=== PATIENT | male | born 1945 | race Caucasian/White ===

== ENCOUNTER 2016-11-18 11:10 | Inpatient (IN) | payer MEDICARE ==
[~2016-11-18] VITALS: Ht 177.8 cm; Wt 94.7 kg
[2016-11-18] VITALS (17 sets, daily range): BP systolic 119–219; BP diastolic 45–101; PULSE 34–80; RESP 14–20; TEMP 98.5–103; O2SAT 0–100
[2016-11-18] MEDS ORDERED: PROPOFOL 1000 MG/100 ML INJ 100 ML ONE (11:22)
[2016-11-18] MEDS ORDERED: SODIUM CHLOR 0.9% 1000 ML INJ 1,000 ML IV SCH (11:24)
[2016-11-18] MEDS ORDERED: LORazepam 2 MG/ML VIAL IV PUSH ONE (11:30)
[2016-11-18] MEDS ORDERED: SODIUM CHLORIDE 0.9% FLUSH 5 ML FLUSH IV FLUSH PRN (11:30)
[2016-11-18] MEDS ORDERED: LORazepam 2 MG/ML VIAL ONE (11:31)
[2016-11-18] MEDS ORDERED: PROPOFOL 1000 MG/100 ML INJ 100 ML IV PRN (11:45)
[2016-11-18] MEDS ORDERED: ETOMIDATE 20 MG/10 ML VIAL IV PUSH ONE (11:45)
[2016-11-18] MEDS ORDERED: SUCCINYLCHOLINE CHLORIDE 100 MG/5 ML SYRINGE IV PUSH ONE (11:45)
[2016-11-18] MEDS ORDERED: insulin SQ (11:52)
[2016-11-18] MEDS ORDERED: KEPP10002 PO (11:52)
[2016-11-18] MEDS ORDERED: ATOR10TA15 PO (11:52)
[2016-11-18 11:54] LABS: I-STAT POTASSIUM 4.7 MMOL/L (3.5-4.9)
[2016-11-18 11:55] LABS: AUTOMATED NEUTROPHIL # 16.5 TH/MM3 (1.8-7.7); BASOPHIL % 0.1 % (0.0-2.0); HEMATOCRIT 46.3 % (39.0-51.0); LYMPH % 5.2 % (9.0-44.0); MEAN CELL VOLUME 92.2 FL (80.0-100.0); MEAN CORPUSCULAR HEMOGLOBIN 30.5 PG (27.0-34.0); MONO % 6.2 % (0.0-8.0); NEUT % 88.5 % (16.0-70.0); PLATELET COUNT 203 TH/MM3 (150-450); RED BLOOD COUNT 5.03 MIL/MM3 (4.50-5.90); RED CELL DISTRIBUTION WIDTH 13.7 % (11.6-17.2); WHITE BLOOD COUNT 18.7 TH/MM3 (4.0-11.0)
[2016-11-18 11:56] LABS: HEMO FLAGS AUTO DIFF
[2016-11-18] MEDS ORDERED: GLUCAGON 1 MG/ML VIAL IV PUSH ONE (12:00)
[2016-11-18 12:03] LABS: BLOOD, URINE MOD (NEG); GLUCOSE,URINE TRACE mg/dL (NEG); INTERNATIONAL NORMALIZED RATIO 1.2 RATIO; KETONE, URINE 10 mg/dL (NEG); NITRITE,URINE NEG (NEG); PH, URINE 5.5 (5.0-8.5); PROTHROMBIN TIME - PATIENT 13.2 SEC (9.8-11.6); TRANSITIONAL EPI CELLS, URINE <1 /hpf; URINE COLOR YELLOW (YELLW/STRAW)
[2016-11-18 12:04] LABS: COMMENT (UR) CATH-CULT NOT IND; CULTURE IF INDICATED CATH CULTURE NOT IND
--- NOTE | 2016-11-18 12:20 | RADRPT ---
EXAM DATE/TIME: 11/18/2016 11:54 [facility] COMPARISON: No previous studies available for comparison. INDICATIONS : Found unresponsive on floor, possible seizure RADIATION DOSE: 36.05 CTDIvol (mGy) MEDICAL HISTORY : Unable to obtain SURGICAL HISTORY : Unable to obtain ENCOUNTER: Initial ACUITY: 1 day PAIN SCALE: Non-responsive LOCATION: cranial TECHNIQUE: Multiple contiguous axial images were obtained of the head. Using automated exposure control and adj ustment of the mA and/or kV according to patient size, radiation dose was kept as low as reasonably a chievable to obtain optimal diagnostic quality images. DICOM format image data is available electro nically for review and comparison. FINDINGS: There are no fractures. Mild ethmoid and right sphenoid mucosal thickening. There is a large hematoma in the right frontal temporal region with a small amount of surrounding edema. On axial image 13 in the right temporal lobe hematoma measures 5.4 x 3.8 cm in AP and transverse dimension. There is also subarachnoid hemorrhage identified along the left sylvian fissure and frontal region, hypodensity in the left temporal lobe with a small amount of probable hemorrhage, trace hemorrhage in the interpedun cular cistern and in the posterior horns of the lateral ventricles. Bilateral subdural hemorrhage is seen along the left frontal convexity with a maximal transverse width of 6 mm, and the right frontal region with a maximal transverse width of 73 mm. There is mild mass effect on the right lateral ventr icle, and there is slight midline shift from right to left a 4.5 mm. CONCLUSION: Intracranial hemorrhage noted as above with both intraparenchymal bleeds, bilateral subdural hemorrha ge, subarachnoid and intraventricular hemorrhage noted as above. Gregorio Barrios MD on November 18, 2016 at 12:17 Board Certified Radiologist. This report was verified electronically.
[2016-11-18 12:26] LABS: BANDS 7 % (0-6); BASOPHILS 1 % (0-2); NEUTROPHIL # MANUAL DIFF 15.1 TH/MM3 (1.8-7.7); PLATELET ESTIMATE SMEAR NORMAL (NORMAL); PLATELET MORPHOLOGY NORMAL (NORMAL); POLYS (SEG NEUTROPHILS) 74 % (16-70); SCAN/DIFF FINAL DIFF MANUAL; WBC DIFF SAMPLE 100
[2016-11-18] MEDS ORDERED: levETIRAcetam 1000 MG INJ 100 ML IV ONE (12:30)
[2016-11-18 12:36] LABS: ALT (GPT) 85 U/L (12-78); ANION GAP 10 MEQ/L (5-15); AST (GOT) 142 U/L (15-37); BICARBONATE 23.1 MEQ/L (21.0-32.0); BLOOD UREA NITROGEN 54 MG/DL (7-18); CHLORIDE 109 MEQ/L (98-107); GLOMERULAR FILTRATION RATE 34 ML/MIN (>89); POTASSIUM 4.7 MEQ/L (3.5-5.1); SODIUM (NA) 142 MEQ/L (136-145)
[2016-11-18 12:38] LABS: ALCOHOL LESS THAN 3 MG/DL (0-5); ALKALINE PHOSPHATASE 60 U/L (45-117); CREATINE KINASE 4927 U/L (39-308)
--- NOTE | 2016-11-18 12:39 | RADRPT ---
EXAM DATE/TIME: 11/18/2016 11:42 [facility] COMPARISON: No previous studies available for comparison. INDICATIONS : Unresponsive. MEDICAL HISTORY : Unresponsive SURGICAL HISTORY : Unresponsive ENCOUNTER: Initial ACUITY: 1 day PAIN SCORE: Non-responsive. LOCATION: Bilateral chest FINDINGS: Endotracheal tube is present with the sixth at 7 cm above the cecelia. Nasogastric tube descends in th e stomach. There are vague areas of masslike density in the lung apices which may reflect symmetric i nfiltrates, mass or overlying densities. Correlation with CT suggested if clinically indicated. Heart size is grossly normal. No significant hemothorax or pneumothorax suspected. CONCLUSION: Bilateral apical opacities. Yomi Corrigan MD on November 18, 2016 at 12:36 Board Certified Radiologist. This report was verified electronically.
[2016-11-18 12:42] LABS: ACETAMINOPHEN LESS THAN 2.0 MCG/ML (10.0-30.0)
[2016-11-18] MEDS ORDERED: PIPERACIL-TAZO 4.5 GM PREMIX 100 ML IV ONE (12:45)
[2016-11-18] MEDS ORDERED: VANCOMYCIN INJ 1,000 MG in SODIUM CHLOR 0.9% 250 ML INJ 250 ML IV ONE (12:45)
[2016-11-18] MEDS ORDERED: SODIUM CHLOR 0.9% 1000 ML INJ 1,000 ML IV ONE ×2 (12:45)
[2016-11-18 12:56] LABS: CKMB 18.8 NG/ML (0.5-3.6)
--- NOTE | 2016-11-18 13:03 | PD ---
HPI Chief Complaint: Cardiac Complaint Time Seen by Provider: 11:24 Travel History International Travel<30 days: No Contact w/Intl Traveler<30days: No Traveled to known affect area: No History of Present Illness HPI 71-year-old male came to the emergency room brought in as a emergent by EMS for being found unresponsive at his home. Unknown last seen normal. Unknown down time. En route they noticed that he was in second-degree heart block with heart rate in the 30s. Patient was being externally paced by EMS. When patient was brought in he was GCS of 3 with purposeless upper extremity movements. He was in a very poor hygienic condition. Heart rate was in the 30s. Patient obviously was in no state to give any meaningful history. There was no family or friend present either. I immediately decided to intubate the patient. Blood pressure was relatively stable. Patient has history of seizure and diabetes. His blood sugar was 120 en route[address] [facility] Past Medical History Narrative Medical List of his past medical, surgical, social and family history is reviewed from the nursing note. Medical History: Unable to Obtain Diabetes: Yes Patient Takes Glucophage: Yes (unknown ) Seizures: Yes Triglycerides - High: Yes Past Surgical History Surgical History: Unable to Obtain Social History Alcohol Use: No (unknown ) Tobacco Use: No Substance Use: No (unknown ) Allergies-Medications (Allergen,Severity, Reaction): Coded Allergies: No Known Allergies (Unverified , 11/18/16) Comments No known drug allergies Reported Meds & Prescriptions Reported Meds & Active Scripts Active Reported [insulin ] Unknown Dose SQ Keppra (Levetiracetam) 1,000 Mg Tab 1,000 Mg PO BID Atorvastatin (Atorvastatin Calcium) 10 Mg Tab 10 Mg PO HS Narrative Medication List of his home medications reviewed from the nursing note. Review of Systems Except as stated in HPI: all other systems reviewed are Neg Physical Exam Narrative GENERAL: Unresponsive, disheveled, poor hygiene, in extremis SKIN: Focused skin assessment warm/dry. Extremely poor hygiene HEAD: Atraumatic. Normocephalic. EYES: Pupils equal and round. 3 mm equal. No scleral icterus. No injection or drainage. ENT: No nasal bleeding or discharge. Mucous membranes pink and moist. NECK: Trachea midline. No JVD. CARDIOVASCULAR: Regular rate and rhythm. Bradycardia No murmur appreciated. RESPIRATORY: Poor respiratory left GASTROINTESTINAL: Abdomen soft, non-tender, nondistended. Hepatic and splenic margins not palpable. MUSCULOSKELETAL: No obvious deformities. No clubbing. No cyanosis. No edema. NEUROLOGICAL: GCS of 3 PSYCHIATRIC: Unable to assess Data Data Last Documented VS Orders Orders Propofol 1000 Mg/100 Ml Inj (Diprivan 10 (11/18/16 11:22) Ammonia (11/18/16 11:24) Complete Blood Count With Diff (11/18/16 11:24) Comprehensive Metabolic Panel (11/18/16 11:24) Creatine Kinase (Cpk) (11/18/16 11:24) Prothrombin Time / Inr (Pt) (11/18/16 11:24) Troponin I (11/18/16 11:24) Thyroid Stimulating Hormone (11/18/16 11:24) Urinalysis - C+S If Indicated (11/18/16 11:24) Lactic Acid Sepsis Protocol (11/18/16 11:24) Blood Culture (11/18/16 11:24) Chest, Single Ap (11/18/16 11:24) Ct Brain W/O Iv Contrast(Rout) (11/18/16 11:24) Blood Glucose (11/18/16 11:24) Ecg Monitoring (11/18/16 11:24) Iv Access Insert/Monitor (11/18/16 11:24) Oximetry (11/18/16 11:24) Sodium Chloride 0.9% Flush (Ns Flush) (11/18/16 11:30) Sodium Chlor 0.9% 1000 Ml Inj (Ns 1000 M (11/18/16 11:24) Drug Screen, Random Urine (11/18/16 11:24) Alcohol (Ethanol) (11/18/16 11:24) Tylenol (Acetaminophen) (11/18/16 11:24) Salicylates (Aspirin) (11/18/16 11:24) Lorazepam Inj (Ativan Inj) (11/18/16 11:30) Lorazepam Inj (Ativan Inj) (11/18/16 11:31) Succinylcholine Inj (Quelicin Inj) (11/18/16 11:45) Etomidate Inj (Amidate Inj) (11/18/16 11:45) Propofol 1000 Mg/100 Ml Inj (Diprivan 10 (11/18/16 11:45) Neurological Rass Scale Q30MX2,Q2HX4,Q4H (11/18/16 11:31) ^ Orogastric Tube (11/18/16 11:31) Urinary Catheter Insert/Apply (11/18/16 11:31) I-Stat Creatinine (11/18/16 11:50) I-Stat Profile (11/18/16 11:50) Echo 2d Comp With Doppler (11/18/16 ) Glucagon Inj (Glucagon Inj) (11/18/16 12:00) Levetiracetam 1000 Mg Inj (Keppra 1000 M (11/18/16 12:30) Sodium Chlor 0.9% 1000 Ml Inj (Ns 1000 M (11/18/16 12:45) Sodium Chlor 0.9% 1000 Ml Inj (Ns 1000 M (11/18/16 12:45) Piperacil-Tazo 4.5 Gm Premix (Zosyn 4.5 (11/18/16 12:45) Vancomycin Inj (Vancomycin Inj) (11/18/16 12:45) CKMB (11/18/16 11:25) CKMB% (11/18/16 11:25) Admit Order (Ed Use Only) (11/18/16 13:04) Labs Laboratory Tests Test 11/18/16 11:25 11/18/16 11:50 White Blood Count 18.7 TH/MM3 Red Blood Count 5.03 MIL/MM3 Hemoglobin 15.3 GM/DL Hematocrit 46.3 % Mean Corpuscular Volume 92.2 FL Mean Corpuscular Hemoglobin 30.5 PG Mean Corpuscular Hemoglobin Concent 33.0 % Red Cell Distribution Width 13.7 % Platelet Count 203 TH/MM3 Mean Platelet Volume 8.6 FL Neutrophils (%) (Auto) 88.5 % Lymphocytes (%) (Auto) 5.2 % Monocytes (%) (Auto) 6.2 % Eosinophils (%) (Auto) 0.0 % Basophils (%) (Auto) 0.1 % Neutrophils # (Auto) 16.5 TH/MM3 Lymphocytes # (Auto) 1.0 TH/MM3 Monocytes # (Auto) 1.1 TH/MM3 Eosinophils # (Auto) 0.0 TH/MM3 Basophils # (Auto) 0.0 TH/MM3 CBC Comment AUTO DIFF Differential Total Cells Counted 100 Neutrophils % (Manual) 74 % Band Neutrophils % 7 % Lymphocytes % 7 % Monocytes % 11 % Basophils % 1 % Neutrophils # (Manual) 15.1 TH/MM3 Differential Comment FINAL DIFF MANUAL Platelet Estimate NORMAL Platelet Morphology Comment NORMAL Prothrombin Time 13.2 SEC Prothromb Time International Ratio 1.2 RATIO Urine Color YELLOW Urine Turbidity CLEAR Urine pH 5.5 Urine Specific [place] 1.033 Urine Protein 100 mg/dL Urine Glucose (UA) TRACE mg/dL Urine Ketones 10 mg/dL Urine Occult Blood MOD Urine Nitrite NEG Urine Bilirubin NEG Urine Urobilinogen 2.0 MG/DL Urine Leukocyte Esterase NEG Urine RBC 26 /hpf Urine WBC 3 /hpf Urine Transitional Epithelial Cells <1 /hpf Microscopic Urinalysis Comment CATH-CULT NOT IND Blood Urea Nitrogen 54 MG/DL Creatinine 1.95 MG/DL Random Glucose 124 MG/DL Total Protein 6.6 GM/DL Albumin 3.2 GM/DL Calcium Level 9.1 MG/DL Alkaline Phosphatase 60 U/L Aspartate Amino Transf (AST/SGOT) 142 U/L Alanine Aminotransferase (ALT/SGPT) 85 U/L Total Bilirubin 1.0 MG/DL Sodium Level 142 MEQ/L Potassium Level 4.7 MEQ/L Chloride Level 109 MEQ/L Carbon Dioxide Level 23.1 MEQ/L Anion Gap 10 MEQ/L Estimat Glomerular Filtration Rate 34 ML/MIN Lactic Acid Level 7.0 mmol/L Ammonia 28 MCMOL/L Total Creatine Kinase 4927 U/L Creatine Kinase MB 18.8 NG/ML Creatine Kinase MB % 0.4 % Troponin I 1.17 NG/ML Thyroid Stimulating Hormone 3rd Gen 0.407 uIU/ML Salicylates Level LESS THAN 1.7 MG/DL Urine Opiates Screen NEG Acetaminophen Level LESS THAN 2.0 MCG/ML Urine Barbiturates Screen NEG Urine Amphetamines Screen NEG Urine Benzodiazepines Screen NEG Urine Cocaine Screen NEG Urine Cannabinoids Screen NEG Ethyl Alcohol Level LESS THAN 3 MG/DL Bedside Hemoglobin 15.0 G/DL Bedside Hematocrit 44.0 % Bedside Sodium 144 MMOL/L Bedside Potassium 4.7 MMOL/L Bedside Chloride 107 MMOL/L Bedside Blood Urea Nitrogen 56 MG/DL Bedside Creatinine 1.6 MG/DL Bedside Glucose 132 MG/DL [facility] Medical Decision Making Medical Screen Exam Complete: Yes Emergency Medical Condition: Yes Medical Record Reviewed: Yes Interpretation(s) EKG was read by me. Twelve-lead EKG shows third-degree AV block, normal axis, peaked T waves. Heart rate of 42. Differential Diagnosis Third-degree AV block, status epilepticus, metabolic encephalopathy, intracranial bleed Narrative Course 12:51 PM patient was emergently intubated by me. Please refer to my procedure note. Patient tolerated the procedure well. After that he was started to be externally paced by me. Please refer to that procedure note on that as well. Initial chosen settings was rate of 100 and an energy of 80 mA. I spoke with Dr. Maria on the phone who came down to see the patient immediately. He looked at the EKG which showed peaked T waves and he was concerned from ischemia standpoint. He wanted to take the patient to the catheter lab. However my concern was intracranial bleed as well at which point he wanted ICH to be ruled out before he made the decision to take the patient to the catheter lab. He agreed with the IV dopamine drip was started and external pacing. He was also contemplating isoproterenol. Patient went to the CT scan which showed massive intracranial, subdural and subarachnoid hemorrhage. Neurosurgery was tried to be contacted but he was in the OR. Patient at this point was on sedation and dopamine drip for his cardiac and externally paced. I was told by the nurse that the capture at this point was not continuous and I increased the energy to 90 mA. A central line was inserted by me. Please refer to my procedure note. Patient tolerated this well. Awaiting for a chest x-ray for placement confirmation. Chest x-ray for ET tube and OG tube confirmation was good. Patient also has significant metabolic abnormalities in the form of an elevated lactic acid, CPK. He has been ordered for a total of 3 L of IV fluid bolus. I will also order IV Zosyn and vancomycin to cover for sepsis. He will be going to ICU. I just spoke with Dr. Rodriges who has accepted the patient. Patient was also given 1 g of Keppra. Critical Care Narrative Aggregate critical care time was 90 minutes. Time to perform other separately billable procedures was not included in the critical care time. My time did not include minutes spent treating any other patients simultaneously or on activities that did not directly contribute to the patient's treatment. The services I provided to this patient were to treat and/or prevent clinically significant deterioration that could result in: Unresponsive, third degree AV block, massive intracranial bleed, ventilator management, dopamine drip, external pacing, sepsis I provided critical care services requiring my management, as noted below: Chart data review, documentation time, medication orders and management, vital sign assessments/reviewing monitor data, ordering and reviewing lab tests, ordering and interpreting/reviewing x-rays and diagnostic studies, care of the patient and discussion of the patient with the admitting physicians. Procedures Procedure Narrative After the risks and benefits were discussed the following procedure was performed: INTUBATION: The patient was put in optimal position for the procedure. Rapid sequence intubation was initiated by me using 20 milligrams of etomidate IV and 200 milligrams of succinylcholine IV. The patient was intubated with a 7.5 cuffed endotracheal tube. Tube placement was confirmed by visualization of the tube and balloon passing through the cords, capnometry and subsequent chest x-ray. Breath sounds were equal and well aerated bilaterally postintubation. No breath sounds over stomach. Patient tolerated procedure well. External pacing: Patient was started on external pacing by me. The pads were applied and patient was placed stat 60 bpm and 80 mA. Later this was increased up to 70 bpm and 90 mA. CENTRAL VENOUS LINE: The site was prepped with Betadine and sterilely draped. It was infiltrated with 1% lidocaine plain. The deep vein was cannulated using normal Seldinger technique. A triple lumen central line was placed in the left subclavian site and secured with simple interrupted suture. The site was sterilely dressed. The patient tolerated the procedure well. EKG Prior to Arrival: Yes Physician Communication Physician Communication Dr. Antelmo Dr. Minor Diagnosis Primary Impression: Unresponsive Additional Impressions: Metabolic encephalopathy Third degree AV block Intracranial bleed Rhabdomyolysis Qualified Codes: M62.82 - Rhabdomyolysis Sepsis Qualified Codes: A41.9 - Sepsis, unspecified organism Lactic acidosis Status epilepticus Elevated troponin I level Respiratory failure Qualified Codes: J96.00 - Acute respiratory failure, unspecified whether with hypoxia or hypercapnia Admitting Information Admitting Physician Requests: it Tamia Alexandra MD Nov 18, 2016 13:03
[2016-11-18] MEDS ORDERED: MIDAZOLAM HCL 5 MG/ML VIAL (1 ML) ONE (13:20)
[2016-11-18 13:51] LABS: LACTIC ACID GHOST NOT REPORTABLE
[2016-11-18 13:52] LABS: BLOOD GAS BASE EXCESS -2.1 mmol/L (-2-2); BLOOD GAS HCO3 22 mmol/L (22-26); BLOOD GAS METHEMOGLOBIN 0.8 % (0-2); BLOOD GAS O2 HGB SATURATION 97 % (90-100); BLOOD GAS OXYGEN CONTENT 19.6 Vol % (12.0-20.0); BLOOD GAS PCO2 33 mmHg (38-42); BLOOD GAS PO2 123 mmHg (61-120); BLOOD GAS TOTAL HGB 14.3 G/DL (12.0-16.0); CRITICAL VALUE NO; DRAW SITE ART LINE; FIO2 70 %; OXYGEN DEVICE VENTILATOR; TEMP CORR TO 98.6; VENT SETTINGS AC/RR20/VT650/PEEP5
[2016-11-18 13:53] LABS: STAT YES
--- NOTE | 2016-11-18 13:54 | HHI.HP ---
HPI Service Critical Care Medicine Primary Care Physician Unknown Admission Diagnosis unresponsive, third degree AV block, elevated troponin, intracranial Diagnosis: Chief Complaint: Found unresponsive Travel History International Travel<30 Days: No Contact w/Intl Traveler <30 Da: No Traveled to Known Affected Are: No History of Present Illness 71 y/o man found unresponsive, appears to have been actively seizing with multiple bites to his lip. Hx of seizures. Presented in complete heart block, hypotensive. Intubated, CVL placed, dopamine gtt and transcutaneous pacing initiated. I met him in the ED and discussed with Dr. Alexandra. Brought to ICU and a-line placed to confirm frequency of pacer capture. Unresponsive, GCS 3T. Son from [facility] has arrived and I have presented the grave scenario to him. Other son is on plane, has DNR document with him. Patient is now DNR status as of 1911 hrs. Review of Systems ROS Unobtainable, obtunded. Past Family Social History Allergies: Coded Allergies: No Known Allergies (Unverified , 11/18/16) Past Medical History Past Medical History Narrative Medical List of his past medical, surgical, social and family history is reviewed from the nursing note. Medical History: Unable to Obtain Diabetes: Yes Patient Takes Glucophage: Yes (unknown ) Seizures: Yes Triglycerides - High: Yes Past Surgical History Surgical History: Unable to Obtain Social History Alcohol Use: No (unknown ) Tobacco Use: No Substance Use: No (unknown ) Allergies-Medications Allergies-Medications (Allergen,Severity, Reaction): Coded Allergies: No Known Allergies (Unverified , 11/18/16) Comments No known drug allergies Reported Meds & Prescriptions Reported Meds & Active Scripts Active Reported [insulin ] Unknown Dose SQ Keppra (Levetiracetam) 1,000 Mg Tab 1,000 Mg PO BID Atorvastatin (Atorvastatin Calcium) 10 Mg Tab 10 Mg PO HS Narrative Medication List of his home medications reviewed from the nursing note. Physical Exam Vital Signs Vital Signs Date Time Temp Pulse Resp B/P (MAP) Pulse Ox O2 Delivery O2 Flow Rate FiO2 11/18/16 13:40 11/18/16 13:10 98 11/18/16 13:05 80 20 135/69 (91) 98 Auto-Vent 11/18/16 12:32 70 20 119/72 (88) 97 Auto-Vent 11/18/16 12:15 70 11/18/16 12:13 60 20 135/72 (93) 97 Auto-Vent 11/18/16 11:30 60 18 219/101 (140) 81 Auto-Vent 11/18/16 11:27 35 12 Auto-Vent 11/18/16 11:20 60 11/18/16 11:12 70 14 126/58 (80) 95 Physical Exam Unresponsive, elderly man. Head: Bruise mid forehead. Neck: Supple, orally intubated. Lungs: Bilateral rhonchi, good air movement. Heart: Irreg Irreg, bradycardia about 38. + JVD. Abdomen: Nondistended, soft, no guarding, quiet. Extremities: Mottled. Poorly perfused. Feet cold. Neuro: Unresponsive. Pectus muscle twitches to pacer shock. No cough or gag. Pupils 2 mm, no reaction. Laboratory Laboratory Tests Test 11/18/16 11:25 11/18/16 11:50 White Blood Count 18.7 Red Blood Count 5.03 Hemoglobin 15.3 Hematocrit 46.3 Mean Corpuscular Volume 92.2 Mean Corpuscular Hemoglobin 30.5 Mean Corpuscular Hemoglobin Concent 33.0 Red Cell Distribution Width 13.7 Platelet Count 203 Mean Platelet Volume 8.6 Neutrophils (%) (Auto) 88.5 Lymphocytes (%) (Auto) 5.2 Monocytes (%) (Auto) 6.2 Eosinophils (%) (Auto) 0.0 Basophils (%) (Auto) 0.1 Neutrophils # (Auto) 16.5 Lymphocytes # (Auto) 1.0 Monocytes # (Auto) 1.1 Eosinophils # (Auto) 0.0 Basophils # (Auto) 0.0 CBC Comment AUTO DIFF Differential Total Cells Counted 100 Neutrophils % (Manual) 74 Band Neutrophils % 7 Lymphocytes % 7 Monocytes % 11 Basophils % 1 Neutrophils # (Manual) 15.1 Differential Comment FINAL DIFF MANUAL Platelet Estimate NORMAL Platelet Morphology Comment NORMAL Prothrombin Time 13.2 Prothromb Time International Ratio 1.2 Urine Color YELLOW Urine Turbidity CLEAR Urine pH 5.5 Urine Specific [place] 1.033 Urine Protein 100 Urine Glucose (UA) TRACE Urine Ketones 10 Urine Occult Blood MOD Urine Nitrite NEG Urine Bilirubin NEG Urine Urobilinogen 2.0 Urine Leukocyte Esterase NEG Urine RBC 26 Urine WBC 3 Urine Transitional Epithelial Cells <1 Microscopic Urinalysis Comment CATH-CULT NOT IND Blood Urea Nitrogen 54 Creatinine 1.95 Random Glucose 124 Total Protein 6.6 Albumin 3.2 Calcium Level 9.1 Alkaline Phosphatase 60 Aspartate Amino Transf (AST/SGOT) 142 Alanine Aminotransferase (ALT/SGPT) 85 Total Bilirubin 1.0 Sodium Level 142 Potassium Level 4.7 Chloride Level 109 Carbon Dioxide Level 23.1 Anion Gap 10 Estimat Glomerular Filtration Rate 34 Lactic Acid Level 7.0 Ammonia 28 Total Creatine Kinase 4927 Creatine Kinase MB 18.8 Creatine Kinase MB % 0.4 Troponin I 1.17 Thyroid Stimulating Hormone 3rd Gen 0.407 Salicylates Level LESS THAN 1.7 Urine Opiates Screen NEG Acetaminophen Level LESS THAN 2.0 Urine Barbiturates Screen NEG Urine Amphetamines Screen NEG Urine Benzodiazepines Screen NEG Urine Cocaine Screen NEG Urine Cannabinoids Screen NEG Ethyl Alcohol Level LESS THAN 3 Bedside Hemoglobin 15.0 Bedside Hematocrit 44.0 Bedside Sodium 144 Bedside Potassium 4.7 Bedside Chloride 107 Bedside Blood Urea Nitrogen 56 Bedside Creatinine 1.6 Bedside Glucose 132 Date/Time Source Procedure Growth Status 11/18/16 12:40 Blood Peripheral Aerobic Blood Culture Pending Received 11/18/16 12:40 Blood Peripheral Anaerobic Blood Culture Pending Received Result Diagram: 11/18/16 1125 11/18/16 1125 Caprini VTE Risk Assessment Caprini VTE Risk Assessment: Mod/High Risk (score >= 2) Caprini Risk Assessment Model Point Value = 1 Point Value = 2 Point Value = 3 Point Value = 5 Age 41-60 Minor surgery BMI > 25 kg/m2 Swollen legs Varicose veins or History of unexplained or recurrent spontaneous Oral contraceptives or hormone replacement Sepsis (< 1 month) Serious lung disease, including pneumonia (< 1 month) Abnormal pulmonary function Acute myocardial infarction Congestive heart failure (< 1 month) History of inflammatory bowel disease Medical patient at bed rest Age 61-74 Arthroscopic surgery Major open surgery (> 45 min) Laparoscopic surgery (> 45 min) Malignancy Confined to bed (> 72 hours) Immobilizing plaster cast Central venous access Age >= 75 History of VTE Family history of VTE Factor V Leiden Prothrombin [id number] Lupus anticoagulant Anticardiolipin antibodies Elevated serum homocysteine Heparin-induced thrombocytopenia Other congenital or acquired thrombophilia Stroke (< 1 month) Elective arthroplasty Hip, pelvis, or leg fracture Acute spinal cord injury (< 1 month) Prophylaxis Regimen Total Risk Factor Score Risk Level Prophylaxis Regimen 0-1 Low Early ambulation 2 Moderate Order ONE of the following: *Sequential Compression Device (SCD) *Heparin 5000 units SQ BID 3-4 Higher Order ONE of the following medications: *Heparin 5000 units SQ TID *Enoxaparin/Lovenox 40 mg SQ daily (WT < 150 kg, CrCl > 30 mL/min) *Enoxaparin/Lovenox 30 mg SQ daily (WT < 150 kg, CrCl > 10-29 mL/min) *Enoxaparin/Lovenox 30 mg SQ BID (WT < 150 kg, CrCl > 30 mL/min) AND/OR *Sequential Compression Device (SCD) 5 or more Highest Order ONE of the following medications: *Heparin 5000 units SQ TID (Preferred with Epidurals) *Enoxaparin/Lovenox 40 mg SQ daily (WT < 150 kg, CrCl > 30 mL/min) *Enoxaparin/Lovenox 30 mg SQ daily (WT < 150 kg, CrCl > 10-29 mL/min) *Enoxaparin/Lovenox 30 mg SQ BID (WT < 150 kg, CrCl > 30 mL/min) AND *Sequential Compression Device (SCD) Assessment and Plan Assessment and Plan Assessment: 1. Cardiopulmonary Arrest. 2. Complete Heart. 3. Intraparenchymal brain hemorrhage. 4. Coma. 5. Diabetes mellitus. 6. Lactic acidosis. 7. Rhabdomyolysis Plan: 1. Transcutaneous pacing. 2. Arterial line. 3. PRVC vent mode. 4. Dopamine gtt. 5. Bicarb gtt. 6. Pepcid. 7. Keppra. 8. CKs, Trop. Overall impression: Critically ill with probably fatal brain hemorrhage and unstable hemodynamics. Critical care 44 mins aside from procedures. Evangelista Rodriges MD Nov 18, 2016 13:54
--- NOTE | 2016-11-18 13:54 | MA ---
Cc: CINDY ANDRADE DATE 11/18/2016 INDICATION Bradycardia. HISTORY OF PRESENT ILLNESS This is a 71-year-old gentleman with relatively unknown history. What we do know is that he has a history of diabetes and was found at home unresponsive. EMS states upon arrival his heart rate was in the 30s and he did have some agonal breathing. He was found to be in excrement which was dried in addition to some lip biting and looks like his lips had been bit, possibly consistent with seizure. EMS put him on transcutaneous pacing pads with respiratory support. He is brought into the emergency department. There he was found to be in complete heart block. He was having some posturing type movements. There is no family or friends available to corroborate history. He had transcutaneous pacing continuous at 7 beats/minute. He was sent over for a STAT head CT which showed a large intracranial bleed. He is being transferred actively to the intensive care unit for further management. PAST MEDICAL HISTORY 1. Relatively unknown. 2. He has apparent history of diabetes. 3. Possible seizure. 4. Hyperlipidemia. SOCIAL HISTORY Unknown. FAMILY HISTORY Unknown. ALLERGIES No known drug allergies. MEDICATIONS 1. Heparin. 2. Atorvastatin. 3. Insulin. REVIEW OF SYSTEMS Unobtainable. PHYSICAL EXAMINATION GENERAL: He is unresponsive, poor eye . NECK: Jugular veins are not distended. Neck exam shows trachea in midline. CARDIOVASCULAR EXAM: Regular but bradycardiac. RESPIRATORY: Relatively normal throughout. EXTREMITIES: No clubbing, cyanosis or edema. VITAL SIGNS: Pulse was 70, paced. Blood pressure 119/72. LABORATORY DATA White count 18.7, hemoglobin 15.3, platelet count 203. INR is 1.2. Sodium 144, potassium 4.7, BUN is 56, creatinine is 1.6. Troponin is 1.17. Total CKs 4927. ASSESSMENT 1. Intracranial bleed. 2. Complete heart block. 3. Rhabdomyolysis. PLAN The intracranial bleed likely is the source for his arrest and vagal induced bradycardia. His prognosis is poor given the size of the bleed and his current neurological state in addition to the fact that it appears he was down for quite some time with elevated CPK and dried excrement. They had given him glucagon prior to recognizing he was not on beta aniceto therapy at home. At this point we will proceed with a more conservative route and see if we can attempt to get hold of some family. He is going to up to the Intensive Care Unit for further management. No plans for a temporary pacemaker. Isoproterenol may be a consideration if clinical status improves. MD JULIETTE Limon/SSB /1:08 PM /1:34 PM
--- NOTE | 2016-11-18 14:57 | PD.PROCEDR ---
Procedure Note Procedure DX: Cardiopulmonary Arrest OP: Insertion Arterial Line ([id number]) Procedure: Time out performed. Right groin prepped and draped. Right common femoral artery cannulated with ultrasound guidance and wire easily advanced. Catheter passed over wire to 18 cm. Good waveform observed. Dressing applied. Dorsalis pedis pulse right side loud by doppler after procedure. Evangelista Rodriges MD Nov 18, 2016 14:57
[2016-11-18] MEDS ORDERED: BISACODYL 10 MG SUPP RECTAL PRN (15:30)
[2016-11-18] MEDS ORDERED: CHLORHEXIDINE GLUCONATE 2 % 1 PACK (2 CLOTHS) TOP PRN (15:30)
[2016-11-18] MEDS ORDERED: ONDANSETRON HCL 4 MG/2 ML VIAL IV PUSH PRN (15:30)
[2016-11-18] MEDS ORDERED: MORPHINE SULFATE 4 MG/ML INJ IV PUSH PRN (15:30)
[2016-11-18] MEDS ORDERED: RESP: ALBUTEROL 2.5 MG/IPRATROPIUM 0.5 MG NEB (PRN) INH (15:30)
[2016-11-18] MEDS ORDERED: LACTULOSE SYRUP 20 GM/30 ML CUP PO PRN (15:30)
[2016-11-18] MEDS ORDERED: MISCELLANEOUS NURSING INFORMATION XX SCH (15:30)
[2016-11-18] MEDS ORDERED: MAGNESIUM HYDROXIDE SUSP 30 ML CUP PO PRN (15:30)
[2016-11-18] MEDS ORDERED: fentaNYL DRIP 250 ML IV PRN (15:30)
[2016-11-18] MEDS ORDERED: ACETAMINOPHEN 325 MG TAB PO PRN (15:30)
[2016-11-18] MEDS ORDERED: SENNOSIDES 8.6 MG TAB PO PRN (15:30)
[2016-11-18] MEDS: SODIUM CHLOR 0.9% 1000 ML INJ 1,000 ML IV SCH (16:00)
--- NOTE | 2016-11-18 16:29 | RADRPT ---
EXAM DATE/TIME: 11/18/2016 15:22 [facility] COMPARISON: CHEST SINGLE AP, November 18, 2016, 11:42. INDICATIONS : Central line placement. MEDICAL HISTORY : unknown SURGICAL HISTORY : unknown ENCOUNTER: Initial ACUITY: 1 day PAIN SCORE: Non-responsive. LOCATION: Bilateral chest FINDINGS: The ETT is in good position. The left subclavian lines in good position. The lungs are otherwise elias r. The bony structures are grossly intact. CONCLUSION: 1. New left subclavian central line. No pneumothorax identified. 2. Endotracheal tube and NG tube in good position Rashaun Fontana MD on November 18, 2016 at 16:27 Board Certified Radiologist. This report was verified electronically.
--- NOTE | 2016-11-18 16:46 | MB ---
cc: ANNE GRACE DATE OF CONSULTATION 11/18/16 REASON FOR CONSULTATION Cerebral hemorrhage. HISTORY OF PRESENT ILLNESS This is a 71-year-old gentleman who was brought to [facility] emergency room this afternoon after he was found unresponsive by paramedics at home. It is unknown how long he has been down, but a wellness check was initiated and he was found unresponsive and bradycardic. He had poor hygienic condition. Reportedly, he has a history of diabetes and seizure. He has no current family available. He was intubated for airway control and a CT scan of the head obtained, reveals right temporal lobe hemorrhage about 5 cm x 4 cm in dimension extending into the frontal aspect. There is also some traumatic subarachnoid hemorrhage in the left lateral Sylvian fissure as well as small bilateral subdural hemorrhages. There is mild midline shift on [id number] about 4 mm. There are small areas of intraventricular occipital hemorrhage but no hydrocephalus is noted. Of significance, the patient is in complete heart block and is requiring external pacer along with vasopressor support. A transvenous pacer is being considered by the software quality test engineer and broomcorn thresher has also seen him and, at this point, is not recommending any aggressive workup or intervention. PAST MEDICAL HISTORY Reportedly 1. Diabetes mellitus 2. Seizures. MEDICATIONS Unknown ALLERGIES None known. SOCIAL HISTORY Unobtainable. REVIEW OF SYSTEMS Unobtainable. The patient is comatose. FAMILY HISTORY Unobtainable. LABORATORY FINDINGS White blood cell count 18.7, hemoglobin 15.3, platelet count 203, PT 13.2, INR 1.2. Sodium 144, potassium 4.7, BUN 56, creatinine 1.6, glucose is 132, lactic acid is seven. Troponin is 1.17, total creatinine kinase is 4927. Toxicology screen is negative. PHYSICAL EXAMINATION VITAL SIGNS: Temperature is 98.5, pulse is 70 External pacer, respiratory rate 20, blood pressure 119/72 on dopamine drip, oxygen saturations is 98% of 80% FIO2 HEAD: No Mejia's or raccoon's sign, although there is a right frontal scalp abrasion and superficial laceration. NECK: No guarding or rigidity. It is supple. CHEST: Clear to auscultation bilaterally. HEART: Being paced with external pacer, his ejection murmur is present. ABDOMEN: Soft, nontender with positive bowel sounds and no hepatosplenomegaly. EXTREMITIES: No deformities, cyanosis or edema. SKIN: Intact with no ecchymosis or abrasions noted. NEUROLOGIC: He is intubated and on Diprivan drip, but does open his eyes to painful stimulation. Pupils are 3 mm and sluggish, react down to two bilaterally. He does withdraw to pain in the upper and lower extremities although does not follow commands, I did not notice any posturing. IMPRESSION 1. Right temporal lobe hemorrhage along with small bilateral subdural hemorrhages and traumatic subarachnoid hemorrhage. 2. Complete heart block on external pacer. 3. History of seizures. 4. Diabetes mellitus. PLAN At this point, will continue with critical care management and, of course, his cardiac condition management is paramount at this time. Recommend head of bed elevation at 30 degrees along with a gastrointestinal stress ulcer prophylaxis, seizure prophylaxis and DVT prophylaxis. Followup CT scan of the head will be obtained tomorrow morning or sooner should there be any change in his neurologic status, although at this point unfortunately it does not seem, given his cardiac condition and complete heart block along with vasopressor supportive, he would be will to tolerate any surgical intervention. His condition obviously is very critical with a guarded prognosis. We will have a discussion with family once they are available. MD GIACOMO Mack/ /4:09 PM /4:30 PM PHIL
[2016-11-18] MEDS ORDERED: ENOXAPARIN SODIUM 30 MG/0.3 ML SYRINGE SQ SCH (17:00)
[2016-11-18] MEDS: PROPOFOL 1000 MG/100 ML INJ 100 ML IV PRN ×2 (17:08→21:38)
[2016-11-18] MEDS ORDERED: DEXTROSE 50% IN WATER 50 ML SYRINGE IV PUSH PRN (17:30)
[2016-11-18] MEDS ORDERED: GLUCAGON 1 MG/ML VIAL OTHER PRN (17:30)
[2016-11-18] MEDS ORDERED: TERBUTALINE INJ 1 MG/ML AMP SQ PRN (18:00)
[2016-11-18] MEDS: INSULIN ASPART SUPPLEMENTAL SCALE SQ SCH (18:00)
[2016-11-18] MEDS ORDERED: CALCIUM CHLORIDE 10% SOLN 1 GRAM/10 ML SYR ONE ×2 (19:04→19:06)
[2016-11-18 19:28] LABS: BLOOD GAS BASE EXCESS -1.6 mmol/L (-2-2); BLOOD GAS CARBOXYHEMOGLOBIN 0.9 % (0-4); BLOOD GAS HCO3 22 mmol/L (22-26); BLOOD GAS METHEMOGLOBIN 0.8 % (0-2); BLOOD GAS O2 HGB SATURATION 97 % (90-100); BLOOD GAS OXYGEN CONTENT 19.9 Vol % (12.0-20.0); BLOOD GAS PCO2 31 mmHg (38-42); BLOOD GAS PO2 143 mmHg (61-120); BLOOD GAS TOTAL HGB 14.4 G/DL (12.0-16.0); CRITICAL VALUE NO; DRAW SITE ART LINE; FIO2 80 %; OXYGEN DEVICE VENTILATOR; STAT NO; TEMP CORR TO 98.6; VENT SETTINGS PRVC/AC
[2016-11-18] MEDS ORDERED: CHLORHEXIDINE 0.12% (ORAL KIT) 15 ML CUP MT SCH (20:00)
[2016-11-18] MEDS ORDERED: CALCIUM CHLORIDE INJ 2 GM in SODIUM CHLORIDE 0.9% INJ 100 ML IV ONE (20:00)
[2016-11-18] MEDS: DOPamine 800 MG/D5W PREMIX 500 ML IV PRN ×2 (20:30→20:59)
[2016-11-18] MEDS ORDERED: FAMOTIDINE 20 MG/2 ML VIAL IV PUSH SCH (21:00)
[2016-11-18] MEDS ORDERED: levETIRAcetam INJ 500 MG in SODIUM CHLORIDE 0.9% INJ 100 ML IV SCH ×2 (21:00)
[2016-11-18] MEDS ORDERED: DOCUSATE SODIUM 50 MG/SENNA 8.6 MG TAB PO SCH (21:00)
[2016-11-18] MEDS ORDERED: ISOPROTERENOL INJ 2 MG in DEXTROSE 5% IN WATER INJ 250 ML IV PRN ×2 (21:15)
[2016-11-19] VITALS: BP 129/38; PULSE 44; RESP 23; TEMP 100.4; O2SAT 91
[2016-11-19] MEDS: INSULIN ASPART SUPPLEMENTAL SCALE SQ SCH
[2016-11-19] MEDS ORDERED: fentaNYL DRIP 250 ML IV PRN (01:30)
[2016-11-19 02:00] VITALS: PULSE 23
[2016-11-19] MEDS: SODIUM CHLOR 0.9% 1000 ML INJ 1,000 ML IV SCH (02:00)
[2016-11-19 03:58] VITALS: O2SAT 0
[2016-11-19] MEDS ORDERED: CHLORHEXIDINE GLUCONATE 2 % 1 PACK (2 CLOTHS) TOP SCH (04:00)
[2016-11-19] MEDS ORDERED: LORazepam 2 MG/ML VIAL IV PUSH ONE (04:00)
[2016-11-19 04:04] VITALS: PULSE 0
--- NOTE | 2016-11-19 06:50 | DEATH SUM ---
Summary Demographics Date Pronounced : Nov 19, 2016 Time Of : 0404 Pronounced By: dr sifuentes Preliminary Cause of : Other (Intracranial hemorrhage) Evangelista Rodriges MD Nov 19, 2016 06:50
--- NOTE | 2016-11-19 06:58 | HHI.DS ---
Discharge Summary Admission Date Nov 18, 2016 at 13:06 Discharge Date: Nov 19, 2016 Admitting Diagnosis unresponsive, third degree AV block, elevated troponin, intracranial Procedures Intubation and mechanical ventilation. Insertion central venous line and arterial line. Transcutaneous pacing. Brief History 71 y/o man found unresponsive, appears to have been actively seizing with multiple bites to his lip. Hx of seizures. Presented in complete heart block, hypotensive. Intubated, CVL placed, dopamine gtt and transcutaneous pacing initiated. I met him in the ED and discussed with Dr. Alexandra. Brought to ICU and a-line placed to confirm frequency of pacer capture. Unresponsive, GCS 3T. Son from [facility] has arrived and I have presented the grave scenario to him. Other son is on plane, has DNR document with him. Patient is now DNR status as of 1911 hrs. CBC/BMP: 11/18/16 1125 11/18/16 1800 Significant Findings Laboratory Tests Test 11/18/16 11:25 11/18/16 11:50 11/18/16 13:37 11/18/16 14:33 White Blood Count 18.7 TH/MM3 (4.0-11.0) Neutrophils (%) (Auto) 88.5 % (16.0-70.0) Lymphocytes (%) (Auto) 5.2 % (9.0-44.0) Neutrophils # (Auto) 16.5 TH/MM3 (1.8-7.7) Monocytes # (Auto) 1.1 TH/MM3 (0-0.9) Neutrophils % (Manual) 74 % (16-70) Band Neutrophils % 7 % (0-6) Lymphocytes % 7 % (9-44) Monocytes % 11 % (0-8) Neutrophils # (Manual) 15.1 TH/MM3 (1.8-7.7) Prothrombin Time 13.2 SEC (9.8-11.6) Urine Protein 100 mg/dL (NEG-TRACE) Urine Ketones 10 mg/dL (NEG) Urine Occult Blood MOD (NEG) Urine RBC 26 /hpf (0-3) Blood Urea Nitrogen 54 MG/DL (7-18) Creatinine 1.95 MG/DL (0.60-1.30) Random Glucose 124 MG/DL (74-106) Albumin 3.2 GM/DL (3.4-5.0) Aspartate Amino Transf (AST/SGOT) 142 U/L (15-37) Alanine Aminotransferase (ALT/SGPT) 85 U/L (12-78) Chloride Level 109 MEQ/L (98-107) Estimat Glomerular Filtration Rate 34 ML/MIN (>89) Lactic Acid Level 7.0 mmol/L (0.4-2.0) Total Creatine Kinase 4927 U/L (39-308) Creatine Kinase MB 18.8 NG/ML (0.5-3.6) Troponin I 1.17 NG/ML (0.02-0.05) Salicylates Level LESS THAN 1.7 MG/DL Acetaminophen Level LESS THAN 2.0 MCG/ML Bedside Blood Urea Nitrogen 56 MG/DL (8-26) Bedside Creatinine 1.6 MG/DL (0.8-1.3) Bedside Glucose 132 MG/DL (60-95) Blood Gas Base Excess -2.1 mmol/L (-2-2) Arterial Blood pH 7.43 (7.380-7.420) Arterial Blood Partial Pressure CO2 33 mmHg (38-42) Arterial Blood Partial Pressure O2 123 mmHg (61-120) Test 11/18/16 18:00 11/18/16 19:10 11/18/16 21:30 Random Glucose 120 MG/DL (74-106) Troponin I 2.94 NG/ML (0.02-0.05) 2.84 NG/ML (0.02-0.05) Arterial Blood pH 7.46 (7.380-7.420) Arterial Blood Partial Pressure CO2 31 mmHg (38-42) Arterial Blood Partial Pressure O2 143 mmHg (61-120) Imaging Head CT: Large right temporal lobe parenchymal hemorrhage. PE at Discharge . Transfer Summary 71 y/o man developed spontaneous intracranial hemorrhage, developed seizures, fell to ground and received trauma to his head in the fall. He developed severe bradycardia and complete heart block most likely from increased intracranial pressure. He arrived to ED unresponsive requiring extensive artificial support including mechanical ventilation, dopamine, and transcutaneous pacing. He never regained consciousness. His son arrived with his formal DNR advanced directive. He naturally at 0404 hours on 11/19. Family at bedside. Pt Condition on Discharge: Deteriorating Evangelista Rodriges MD Nov 19, 2016 06:58
--- NOTE | 2016-11-19 07:03 | HHI.CCPN ---
Subjective Remarks/Hospital Course 71 y/o man found unresponsive, appears to have been actively seizing with multiple bites to his lip. Hx of seizures. Presented in complete heart block, hypotensive. Intubated, CVL placed, dopamine gtt and transcutaneous pacing initiated. I met him in the ED and discussed with Dr. Alexandra. Brought to ICU and a-line placed to confirm frequency of pacer capture. Unresponsive, GCS 3T. Son from [facility] has arrived and I have presented the grave scenario to him. Other son is on plane, has DNR document with him. Patient is now DNR status as of 1911 hrs. 11/19: Patient has continued to deteriorate with multisystem organ failure due to cardiogenic shock following a spontaneous large right temporal lobe brain hemorrhage. Objective Vital Signs Date Time Temp Pulse Resp B/P (MAP) Pulse Ox O2 Delivery O2 Flow Rate FiO2 11/19/16 04:04 0 11/19/16 03:58 0 Room Air 21 11/19/16 00:00 100.4 23 129/38 (68) 11/18/16 11:10 15.00 Result Diagram: 11/18/16 1125 11/18/16 1800 Other Results Laboratory Tests Test 11/18/16 13:37 11/18/16 19:10 Blood Gas Puncture Site ART LINE ART LINE Blood Gas Patient Temperature 98.6 98.6 Blood Gas HCO3 22 mmol/L (22-26) 22 mmol/L (22-26) Blood Gas Base Excess -2.1 mmol/L (-2-2) -1.6 mmol/L (-2-2) Blood Gas Oxygen Saturation 97 % (90-100) 97 % (90-100) Arterial Blood pH 7.43 (7.380-7.420) 7.46 (7.380-7.420) Arterial Blood Partial Pressure CO2 33 mmHg (38-42) 31 mmHg (38-42) Arterial Blood Partial Pressure O2 123 mmHg (61-120) 143 mmHg (61-120) Arterial Blood Oxygen Content 19.6 Vol % (12.0-20.0) 19.9 Vol % (12.0-20.0) Arterial Blood Carboxyhemoglobin 1.0 % (0-4) 0.9 % (0-4) Arterial Blood Methemoglobin 0.8 % (0-2) 0.8 % (0-2) Blood Gas Hemoglobin 14.3 G/DL (12.0-16.0) 14.4 G/DL (12.0-16.0) Oxygen Delivery Device VENTILATOR VENTILATOR Blood Gas Ventilator Setting AC/RR20/VT650/PEEP5 PRVC/AC Blood Gas Inspired Oxygen 70 % 80 % Objective Remarks Unresponsive, elderly man. Head: Bruise mid forehead. No bleeding. Neck: Supple, orally intubated. Lungs: Bilateral rhonchi, good air movement. No spontaneous effort. Heart: Irreg Irreg, bradycardia about 38 - 41. + JVD. Abdomen: Nondistended, soft, no guarding, quiet. Extremities: Mottled. Poorly perfused. Feet remain cold. Neuro: Unresponsive. Pectus muscle twitches to pacer shocks. No cough or gag. Pupils 2 mm, no reaction. Procedures Intubation and mechanical ventilation. Insertion central venous line and arterial line. Transcutaneous pacing. A/P Assessment and Plan Assessment: 1. Cardiopulmonary Arrest. 2. Complete Heart. 3. Intraparenchymal brain hemorrhage. 4. Coma. 5. Diabetes mellitus. 6. Lactic acidosis. 7. Rhabdomyolysis Plan: 1. Transcutaneous pacing. 2. Arterial line. 3. PRVC vent mode. 4. Increase Dopamine gtt. 5. Bicarb gtt. 6. Pepcid. 7. Keppra. 8. CKs, Trop. 9. SCDs. 10. Chemical DVT px contraindicated due to brain bleed. 11. Confirm DNR status -> done. Overall impression: Critically ill with likely fatal brain hemorrhage and unstable hemodynamics. Now in cardiogenic shock despite inotropic and pacemaker support. Critical care 48 mins aside from procedures. Evangelista Rodriges MD Nov 19, 2016 07:03
== END 2016-11-19 05:49 | disposition expired | DRG 82 ==
LOC: NEPE 11:10 → NEDA 13:06 → N03A 13:19
PROVIDERS: ADMIT Surgery Surgical Critical Care; ATTEND Surgery Surgical Critical Care
PROC: 05H633Z Insertion of Infusion Device into Left Subclavian Vein, Percutaneous Approach (ICD-10-PCS; principal; 2016-11-18)
PROC: 03HY32Z Insertion of Monitoring Device into Upper Artery, Percutaneous Approach (ICD-10-PCS; 2016-11-18)
PROC: 04HY32Z Insertion of Monitoring Device into Lower Artery, Percutaneous Approach (ICD-10-PCS; 2016-11-18)
PROC: 5A1935Z Respiratory Ventilation, Less than 24 Consecutive Hours (ICD-10-PCS; 2016-11-18)
PROC: 0BH17EZ Insertion of Endotracheal Airway into Trachea, Via Natural or Artificial Opening (ICD-10-PCS; 2016-11-18)
PROC: 4A133B1 Monitoring of Arterial Pressure, Peripheral, Percutaneous Approach (ICD-10-PCS; 2016-11-18)
PROC: 4A133J1 Monitoring of Arterial Pulse, Peripheral, Percutaneous Approach (ICD-10-PCS; 2016-11-18)
PROC: 5A2204Z Restoration of Cardiac Rhythm, Single (ICD-10-PCS; 2016-11-18)
DX: S06.369A Traumatic hemorrhage of cerebrum, unspecified, with loss of consciousness of unspecified duration, initial encounter (principal); J96.90 Respiratory failure, unspecified, unspecified whether with hypoxia or hypercapnia; R57.0 Cardiogenic shock; I44.2 Atrioventricular block, complete; G93.41 Metabolic encephalopathy; A41.9 Sepsis, unspecified organism; M62.82 Rhabdomyolysis; E87.2 Acidosis; S06.6X9A Traumatic subarachnoid hemorrhage with loss of consciousness of unspecified duration, initial encounter; G40.901 Epilepsy, unspecified, not intractable, with status epilepticus; R74.8 Abnormal levels of other serum enzymes; E11.9 Type 2 diabetes mellitus without complications; Z66 Do not resuscitate; R00.1 Bradycardia, unspecified; S00.01XA Abrasion of scalp, initial encounter; X58.XXXA Exposure to other specified factors, initial encounter; Y93.9 Activity, unspecified; Y92.9 Unspecified place or not applicable; E78.5 Hyperlipidemia, unspecified
CPT/HCPCS: 31500; 36556; 43753; 51702; 70450; 71010; 80053; 80307; 81001; 82140; 82435; 82550; 82552; 82565; 82805; 82947; 83605; 84132; 84295; 84443; 84484; 84520; 85007; 85027; 85610; 87040; 87641; 94002; 94003; 96365; 96374; 96375; 99292; J0330; J1265; J1953; J2060; J2250; J2543; J3010; J3370; J7030; J7050; J7060